=== PATIENT | female | born 1955 | race Caucasian/White ===

== ENCOUNTER 2021-11-27 17:02 | Inpatient (IN) ==
[2021-11-27] MEDS ORDERED: *HR* HYDROcodone/Acet 5/325 mg TABLET PO ONE (20:37)
[2021-11-27] MEDS ORDERED: *HR* Propofol 200 MG/20 ML VIAL IVP ONE (21:40)
[2021-11-27] MEDS ORDERED: Morphine Sulfate 2 MG/ML SYRINGE IVP ONE (21:40)
[2021-11-27] MEDS ORDERED: Lidocaine 1% 20 ML MDV INFILT ONE (21:40)
[2021-11-27 22:30] LABS: White Blood Count 16.4 K/mcL (4.3-11.1)
[2021-11-27 22:31] LABS: Basophils # 0.1 K/mcL (0.0-0.2); Basophils % 0.4 %; Eosinophils # 0.1 K/mcL (0.0-0.6); Eosinophils % 0.7 %; Hematocrit 43.2 % (35.3-44.9); Hemoglobin 14.8 g/dL (11.5-15.4); Immature Granulocytes % 0.4 % (0-4); Lymphocytes # 4.2 K/mcL (0.6-4.6); Lymphocytes % 25.7 %; Mean Corpuscular HGB Conc 34.3 g/dL (31.6-35.5); Mean Corpuscular Hemoglobin 29.2 pg (28.0-33.3); Mean Corpuscular Volume 85.2 fL (83.0-100.0); Mean Platelet Volume 8.6 fL (9.4-12.4); Monocytes # 1.3 K/mcL (0.0-1.3); Monocytes % 7.9 %; Neutrophils # 10.6 K/mcL (1.6-8.9); Platelet Count 243 K/mcL (140-400); Red Blood Count 5.07 M/mcL (3.82-4.97); Red Cell Distribution Width 13.4 % (11.5-14.5); Segmented Neutrophils % 64.9 %
[2021-11-27] MEDS ORDERED: 0.9 % Sodium Chloride 1,000 ML ONE (22:38)
[2021-11-27 22:49] LABS: Alanine Aminotransferase 15 Units/L (7-52); Albumin 4.2 g/dL (3.5-5.7); Albumin/Globulin Ratio 1.4 (1.1-2.2); Alkaline Phosphatase 86 Units/L (34-104); Aspartate Amino Transferase 13 Units/L (13-39); BUN/Creatinine Ratio 24 (6-26); Bilirubin,Total 0.4 mg/dL (0.3-1.0); Blood Urea Nitrogen 24 mg/dL (8-23); Carbon Dioxide 25 mEq/L (23-29); Chloride 110 mEq/L (98-107); Globulin 2.9 g/dL (2.4-3.5); Glucose 94 mg/dL (70-105); Osmolality,Calculated 302 (280-300); Potassium 3.8 mEq/L (3.5-5.1); Sodium 144 mEq/L (136-145); Total Protein 7.1 g/dL (6.4-8.9); eGFR For African Americans > 60 (> 60); eGFR For Non-African Americans 57 (> 60)
[2021-11-27] MEDS ORDERED: 0.9 % Sodium Chloride 1,000 ML IV ONE (23:09)
[2021-11-28] MEDS ORDERED: Acetaminophen 325 MG TABLET PO PRN ×2 (01:03→16:24)
[2021-11-28] MEDS ORDERED: Naloxone 0.4 MG/ML INJ IVP PRN ×2 (01:03→16:24)
[2021-11-28] MEDS ORDERED: 0.9 % Sodium Chloride 1,000 ML IVC SCH (01:15)
[2021-11-28 01:30] LABS: Bilirubin,Urine Negative (Negative); Blood,Urine Negative (Negative); Clarity,Urine Clear (Clear); Color,Urine Yellow (Yellow); Glucose,Urine (UA) Normal (Normal); Ketones,Urine Negative (Negative); Leukocyte Esterase,Urine Negative (Negative); Nitrite,Urine Negative (Negative); PH,Urine 5.5 pH Units (5.0-8.0); Protein,Urine Trace mg/dL (Neg-Trace); Specific Gravity,Urine > 1.030 (1.010-1.025); Urobilinogen,Urine Normal (Normal)
[2021-11-28] MEDS: tiZANidine 4 MG TABLET PO SCH ×5 (02:54→19:59)
[2021-11-28] MEDS: *HR* HYDROmorphone 2 MG TABLET PO PRN ×2 (02:54→08:18)
[2021-11-28 02:56] LABS: BUN/Creatinine Ratio 24 (6-26); Blood Urea Nitrogen 23 mg/dL (8-23); Calcium 8.2 mg/dL (8.6-10.3); Carbon Dioxide 21 mEq/L (23-29); Chloride 111 mEq/L (98-107); Chol/HDL Ratio 3.2 (0-4.9); Cholesterol 165 mg/dL (< 200); Glucose 108 mg/dL (70-105); HDL Cholesterol 51 mg/dL (40-59); Hematocrit 40.1 % (35.3-44.9); Hemoglobin 13.9 g/dL (11.5-15.4); LDL Cholesterol,Calculated 100 mg/dL (< 100); Magnesium 1.9 mg/dL (1.6-2.6); Mean Corpuscular HGB Conc 34.7 g/dL (31.6-35.5); Mean Corpuscular Hemoglobin 29.8 pg (28.0-33.3); Mean Corpuscular Volume 85.9 fL (83.0-100.0); Mean Platelet Volume 8.9 fL (9.4-12.4); Osmolality,Calculated 296 (280-300); Platelet Count 223 K/mcL (140-400); Potassium 4.1 mEq/L (3.5-5.1); Red Blood Count 4.67 M/mcL (3.82-4.97); Red Cell Distribution Width 13.3 % (11.5-14.5); Sodium 141 mEq/L (136-145); Triglycerides 68 mg/dL (< 150); White Blood Count 15.2 K/mcL (4.3-11.1); eGFR For African Americans > 60 (> 60); eGFR For Non-African Americans 58 (> 60)
[2021-11-28] MEDS: Gabapentin 300 MG CAPSULE PO SCH ×3 (08:16→19:59)
[2021-11-28] MEDS ORDERED: *HR* HYDROmorphone PF 0.5 MG/0.5 ML SYRINGE IVP PRN (08:17)
[2021-11-28] MEDS ORDERED: Ondansetron 4 MG/2 ML VIAL IVP PRN ×3 (08:17→16:24)
[2021-11-28] MEDS ORDERED: *HR* FentaNYL (PF) 100 MCG/2 ML VIAL IVP PRN ×2 (08:17→16:24)
[2021-11-28 08:36] LABS: Estimated Average Glucose 108 mg/dl; Hemoglobin A1C 5.4 %
[2021-11-28] MEDS ORDERED: hydroCHLOROthiazide 25 MG TABLET PO SCH (09:00)
[2021-11-28] MEDS ORDERED: *HR* FentaNYL (PF) 100 MCG/2 ML VIAL ONE (11:18)
[2021-11-28] MEDS ORDERED: *HR* Propofol 200 MG/20 ML VIAL IVP ONE (11:19)
[2021-11-28] MEDS ORDERED: ROPIVACAINE/PF/NS 0.25% 1 EACH SYRINGE INTRAART ONE (11:43)
[2021-11-28] MEDS ORDERED: Lidocaine -MPF 4% 5 ML AMPUL ONE (12:12)
[2021-11-28] MEDS ORDERED: Ondansetron 4 MG/2 ML VIAL ONE (12:12)
[2021-11-28] MEDS ORDERED: Lidocaine -MPF 2% 5 ML VIAL ONE (12:12)
[2021-11-28] MEDS ORDERED: *HR* Succinylcholine 200 MG/10 ML VIAL IVP ONE (12:13)
[2021-11-28] MEDS ORDERED: Lidocaine/EPI 1:100k 1% 30 ML VIAL ONE (12:30)
[2021-11-28] MEDS ORDERED: Lidocaine 1% 20 ML MDV ONE (12:30)
[2021-11-28] MEDS ORDERED: Bupivacaine/EPI 1:200k 0.25% 50 ML VIAL ONE (12:30)
[2021-11-28] MEDS ORDERED: *HR* Phenylephrine 10 MG/ML VIAL ONE (13:19)
[2021-11-28] MEDS ORDERED: *HR* HYDROmorphone 2 MG TABLET PO PRN (16:24)
[2021-11-28] MEDS: ceFAZolin 2,000 MG in 0.9 % Sodium Chloride 100 ML IVPB SCH (19:59)
[2021-11-29] MEDS: ceFAZolin 2,000 MG in 0.9 % Sodium Chloride 100 ML IVPB SCH ×2 (01:16→08:27)
[2021-11-29 03:55] VITALS: TEMP 98.3
[2021-11-29] MEDS: Gabapentin 300 MG CAPSULE PO SCH (08:26)
[2021-11-29] MEDS: tiZANidine 4 MG TABLET PO SCH (08:26)
[2021-11-29 08:40] LABS: Basophils % 0.1 %; Eosinophils % 0.1 %; Hematocrit 38.2 % (35.3-44.9); Hemoglobin 12.6 g/dL (11.5-15.4); Immature Granulocytes % 0.5 % (0-4); Lymphocytes # 1.5 K/mcL (0.6-4.6); Lymphocytes % 9.7 %; Mean Corpuscular Hemoglobin 28.9 pg (28.0-33.3); Mean Corpuscular Volume 87.6 fL (83.0-100.0); Monocytes # 1.4 K/mcL (0.0-1.3); Monocytes % 9.4 %; Neutrophils # 12.2 K/mcL (1.6-8.9); Platelet Count 185 K/mcL (140-400); Red Blood Count 4.36 M/mcL (3.82-4.97); Red Cell Distribution Width 13.1 % (11.5-14.5); Segmented Neutrophils % 80.2 %; White Blood Count 15.2 K/mcL (4.3-11.1)
[2021-11-29] MEDS ORDERED: hydroCHLOROthiazide 25 MG TABLET PO SCH (09:00)
[2021-11-29 09:06] LABS: BUN/Creatinine Ratio 23 (6-26); Blood Urea Nitrogen 22 mg/dL (8-23); Calcium 8.2 mg/dL (8.6-10.3); Carbon Dioxide 24 mEq/L (23-29); Chloride 107 mEq/L (98-107); Glucose 117 mg/dL (70-105); Osmolality,Calculated 292 (280-300); Potassium 3.6 mEq/L (3.5-5.1); Sodium 139 mEq/L (136-145); eGFR For African Americans > 60 (> 60); eGFR For Non-African Americans 58 (> 60)
[2021-11-29 10:44] VITALS: BP 107/66; PULSE 76; O2SAT 96
== END 2021-11-29 10:50 | disposition home or self-care (01) | DRG 493 ==
LOC: EMEROOARM 17:02 → 4WAOSI 17:02 → SUATTDRO 11-28 01:03 → 4WAOSI 11-28 01:42
PROVIDERS: ADMIT Internal Medicine; ATTEND Family Medicine